=== PATIENT | male | born 1960 | race African-American/Black ===

== ENCOUNTER 2019-12-09 13:47 | Emergency (ER) | payer OTHER ==
[~2019-12-09] VITALS: Ht 180.3 cm; Wt 195.1 kg
[2019-12-09] MEDS ORDERED: PROAIR HFA8.5 GM INH (14:01)
[2019-12-09] MEDS ORDERED: ALPRAZOLAM 0.50.5 M1 PO (14:01)
[2019-12-09] MEDS ORDERED: FENOFIBRATE160 MG PO (14:02)
[2019-12-09] MEDS ORDERED: FENTANYL1 EAC1 TOP (14:02)
[2019-12-09] MEDS ORDERED: NAPROSYN500 MG PO (14:02)
[2019-12-09] MEDS ORDERED: PERCOCET 10-321 EACH PO (14:02)
[2019-12-09] MEDS ORDERED: VERAPAMIL E.R240 M1 PO (14:02)
[2019-12-09] MEDS ORDERED: IRBESARTAN300 MG PO (14:03)
[2019-12-09 14:49] LABS: ANION GAP 9 mmol/L (7-16); BUN 13 mg/dL (7-18); CALCIUM 8.7 mg/dL (8.5-10.1); CHLORIDE 108 mmol/L (98-107); CO2 28 mmol/L (21-32); CREATININE 1.1 mg/dL (0.7-1.3); GLUCOSE 102 mg/dL (74-106); POTASSIUM 4.1 mmol/L (3.5-5.1); SODIUM 145 mmol/L (136-145)
[2019-12-09 14:59] LABS: ALBUMIN 3.4 g/dL (3.4-5.0); SGOT 24 U/L (15-37); SGPT 27 U/L (30-65); TOTAL BILIRUBIN 0.4 mg/dL (0.2-1.0); TOTAL PROTEIN 6.5 g/dL (6.4-8.2); TROPONIN-I <0.06 ng/mL (<0.06)
[2019-12-09 15:14] LABS: ABSOLUTE NEUTROPHILS 4.8 thou/uL (1.4-8.2); BASOPHILS 0.7 % (0.0-2.0); HEMATOCRIT 44.8 % (42.0-52.0); HEMOGLOBIN 15.3 gm/dL (14.0-18.0); LYMPHOCYTES 23.8 % (24.0-44.0); MCH 31.3 pg (26.0-34.0); MCHC 34.1 g/dL (28.0-37.0); MCV 91.7 fL (80.0-100.0); MONOCYTES 11.5 % (1.0-8.0); PLATELET COUNT 228 thou/uL (150-400); RBC 4.88 mil/uL (4.50-6.00); RDW 16.1 % (10.5-14.5); WBC 7.8 thou/uL (4.0-11.0)
[2019-12-09] MEDS ORDERED: OXTELLAR XR300 MG PO ×2 (17:22→17:30)
[2019-12-09 18:35] VITALS: BP 168/97
--- NOTE | 2019-12-12 08:01 | EKG ---
[facility] [place] [address] ELECTROCARDIOGRAM REPORT Name: ELADIO ROD Room #: DEP [facility]#: [id number] Admission: 12/09/19 Attend Phys: Discharge: 12/09/19 Date of : 60 Report #: [id number] THIS REPORT FOR: cc: RIRI - Risa family physician/PCP RIRI - Risa family physician/PCP Jose Alfredo Boyle MD [facility] THIS REPORT FOR: //name// [facility] ED Test Date: 2019-12-09 Test Time: 14:22:13 Pat Name: ELADIO ROD Department: Room: Gender: Teleprinter: : 1960 Requested By: Aquiles Calero Order Number: [id number] MD: Jose Alfredo Boyle Measurements Intervals [place] Rate: 58 P: 59 GA: 164 QRS: -13 QRSD: 85 T: 34 QT: 438 QTc: 431 Interpretive Statements Sinus bradycardia Otherwise normal tracing No previous ECG available for comparison Electronically Signed On 12-12-2019 8:01:41 CDT by Jose Alfredo Boyle [email or web address] <ELECTRONICALLY SIGNED> By: Jose Alfredo Boyle MD, [facility] 12/12/19 0801 21 21 Jose Alfredo Boyle MD, [facility] /EPI
== END 2019-12-09 18:35 | disposition home or self-care (01) ==
LOC: ER 13:47
PROVIDERS: Physician Assistant
DX: G50.0 Trigeminal neuralgia (principal); Z20.828 Contact with and (suspected) exposure to other viral communicable diseases; M51.26 Other intervertebral disc displacement, lumbar region; R06.02 Shortness of breath; Z79.899 Other long term (current) drug therapy